=== PATIENT | female | born 1985 | race Caucasian/White ===

== ENCOUNTER 2017-06-06 07:34 | Emergency (ER) | payer BC, OTHER ==
[2017-06-06] MEDS ORDERED: DEXAMETHASONE 10 MG/ML VIAL ONE (08:01)
[2017-06-06] MEDS ORDERED: METOCLOPRAMIDE 10 MG/2mL INJ ONE (08:01)
[2017-06-06] MEDS ORDERED: DIPHENHYDRAMINE 50 MG/ML VIAL ONE (08:01)
--- NOTE | 2017-06-06 08:30 | RAD REPORT ---
EXAM DESCRIPTION: CT - Head Brain Wo Cont - 06/06/2017 8:17 am CLINICAL HISTORY: Headache for 4 days COMPARISON: None. TECHNIQUE: Computed axial tomography of the head was obtained. IV contrast was not requested. All CT scans are performed using dose optimization technique as appropriate and may include automated exposure control or mA/KV adjustment according to patient size. FINDINGS: An intracranial bleed is not seen . The ventricles are normal in caliber. No extra-axial fluid collection is noted. Fluid within the sinuses/ mastoids is not seen. IMPRESSION: No acute intracranial abnormality is seen. If patient's symptoms persist MRI of the bra in would be recommended.
[2017-06-06] MEDS ORDERED: KETOROLAC 30 MG/ML INJ ONE (09:50)
--- NOTE | 2017-06-06 10:41 | ER ---
Nurse's Notes [facility] Name: Tessa Fuller Age: 32 yrs Sex: Female : 1985 Arrival Date: 06/06/2017 Time: 07:39 Bed 14 Private MD: Lane Benson Diagnosis: Migraine Presentation: 06/06 07:47 Presenting complaint: Patient states: headache x 4 days, intermittent vomiting x 2 ss days. Pt reports she was seen at Dr. Benson's office yesterday and given "a shot that starts with a T", that helped until three this morning and patient began vomiting again. Transition of care: patient was not received from another setting of care. Onset of symptoms was June 05, 2017. Initial Sepsis Screen: Does the patient meet any 2 criteria? No. Patient's initial sepsis screen is negative. Does the patient have a suspected source of infection? No. Patient's initial sepsis screen is negative. Care prior to arrival: None. 07:47 Method Of Arrival: Ambulatory ss 07:47 Acuity: ERMIAS 3 ss SUBWAY GUARD: 07:50 LMP 05/25/2017 ss Historical: - Allergies: 07:50 No Known Allergies; ss - Home Meds: 07:50 lamictal [Active]; Prozac Oral [Active]; ss - PMHx: 07:50 borderline personality disorder; Anxiety; ss - PSHx: 07:50 None; ss - Immunization history:: Adult Immunizations up to date. - Social history:: Smoking status: Patient/guardian denies using tobacco. Screenin:25 Abuse screen: Denies threats or abuse. Denies injuries from another. Nutritional jl7 screening: No deficits noted. Tuberculosis screening: No symptoms or risk factors identified. Fall Risk IV access (20 points). Total Holland Fall Scale indicates No Risk (0-24 pts). Assessment: 07:55 General: Appears in no apparent distress. uncomfortable, Behavior is calm, cooperative. jl7 Pain: Complains of pain in headache Pain does not radiate. Pain currently is 7 out of 10 on a pain scale. Quality of pain is described as "Like a bowling ball rolling around in there.". 07:55 Neuro: Level of Consciousness is awake, alert, obeys commands, Oriented to person, jl7 place, time, situation, Moves all extremities. Gait is steady, Speech is normal, Facial symmetry appears normal, Pupils are PERRLA. Cardiovascular: Heart tones S1 S2 present Patient's skin is warm and dry. Respiratory: Airway is patent Respiratory effort is even, unlabored, Respiratory pattern is regular, symmetrical, Breath sounds are clear bilaterally. GI: Reports nausea, vomiting. : No signs and/or symptoms were reported regarding the genitourinary system. EENT: No signs and/or symptoms were reported regarding the EENT system. Derm: Skin is pink, warm \\T\\ dry. Musculoskeletal: No signs and/or symptoms reported regarding the musculoskeletal system. 09:00 Reassessment: No changes from previously documented assessment. Patient and/or family jl7 updated on plan of care and expected duration. Pain level reassessed. Patient is alert, oriented x 3, equal unlabored respirations, skin warm/dry/pink. 10:00 Reassessment: Patient and/or family updated on plan of care and expected duration. Pain jl7 level reassessed. Patient is alert, oriented x 3, equal unlabored respirations, skin warm/dry/pink. pt reports decreased pain at this time. Vital Signs: 07:50 BP 122 / 88; Pulse 82; Resp 16; Temp 98.3(TE); Pulse Ox 98.3% on R/A; Weight 97.52 kg; ss Height 5 ft. 10 in. (177.80 cm); Pain 7/10; 08:25 BP 125 / 90; Pulse 80; Resp 14; Pulse Ox 97% ; jl7 09:46 BP 122 / 83; Pulse 73; Resp 16 S; Pulse Ox 100% on R/A; jl7 10:30 BP 124 / 82; Pulse 75; Resp 16 S; Pulse Ox 100% on R/A; jl7 07:50 Body Mass Index 30.85 (97.52 kg, 177.80 cm) ED Course: 07:39 Patient arrived in ED. mr 07:39 Lane Benson MD is Private Physician. mr 07:42 Michelet Sofia PA is PHCP. jr8 07:42 Osmin Mercado MD is Attending Physician. jr8 07:43 Stacey Stearns RN is Primary Nurse. jl7 07:48 Triage completed. ss 07:50 Arm band placed on right wrist. ss 08:05 Inserted saline lock: 20 gauge in right antecubital area, using aseptic technique. jl7 08:16 CT Head Brain wo Cont In Process Unspecified. EDNM 08:16 CT completed. Patient tolerated procedure well. Patient moved to CT via wheelchair. Patient moved back from CT. 08:25 Patient has correct armband on for positive identification. Bed in low position. Call jl7 light in reach. Side rails up X 1. Pulse ox on. NIBP on. 10:41 Lane Benson MD is Referral Physician. jr8 10:41 Twin Kelly MD is Referral Physician. jr8 11:05 No provider procedures requiring assistance completed. IV discontinued, intact, jl7 bleeding controlled, No redness/swelling at site. Pressure dressing applied. Administered Medications: 08:02 Drug: Benadryl 25 mg Route: IVP; Site: right antecubital; jl7 08:26 Follow up: Response: No change in condition jl7 08:05 Drug: Decadron - Dexamethasone 10 mg Route: IVP; Site: right antecubital; jl7 08:26 Follow up: Response: No change in condition jl7 08:08 Drug: Reglan 10 mg Route: IVP; Site: right antecubital; jl7 08:27 Follow up: Response: No change in condition jl7 09:53 Drug: TORadol 30 mg Route: IVP; Site: right antecubital; jl7 10:15 Follow up: Response: Pain is decreased jl7 Outcome: 10:41 Discharge ordered by MD. jr8 11:05 Discharged to home ambulatory. jl7 11:05 Condition: stable 11:05 Discharge instructions given to patient, Instructed on discharge instructions, follow up and referral plans. medication usage, Demonstrated understanding of instructions, follow-up care, medications, Prescriptions given X 1. 11:08 Patient left the ED. jl7 Signatures: Dispatcher [employer] EDNM Laureen Gee mr FrederickGinger Shelby, RN RN Michelet Dotson PA PA jrStacey Tate RN RN jl7 Corrections: (The following items were deleted from the chart) 08:24 08:21 General: Appears in no apparent distress. uncomfortable, Behavior is calm, jl7 cooperative, jl7 08:24 08:21 Pain: Complains of pain in headache Pain does not radiate. Pain currently is 7 jl7 out of 10 on a pain scale. Quality of pain is described as "Like a bowling ball rolling around in there." jl7 : 10:30 No provider procedures requiring assistance completed. jl7 jl7 : 10:30 IV discontinued, intact, bleeding controlled, No redness/swelling at site. jl7 Pressure dressing applied, jl7
--- NOTE | 2017-06-06 10:41 | EDPHYS ---
Physician Documentation [facility] Name: Tessa Fuller Age: 32 yrs Sex: Female : 1985 Arrival Date: 06/06/2017 Time: 07:39 Bed 14 Private MD: Lane Benson ED Physician Osmin Mercado HPI: 06/06 08:08 This 32 yrs old Female presents to ER via Ambulatory with complaints of jr8 Headache. 08:08 The patient complains of pain to the left occipital area and right occipital area. The jr8 patient describes the headache as throbbing. Onset: The symptoms/episode began/occurred acutely, 2 day(s) ago. Associated signs and symptoms: Pertinent positives: nausea, Photophobia vomiting. Severity of symptoms: At its worst the pain was moderate, in the emergency department the pain is unchanged. Headache History: Denies prior headaches. The symptoms are alleviated by nothing. the symptoms are aggravated by lights, movement, noise. The patient has not experienced similar symptoms in the past. The patient has been recently seen by a physician:. Saw PCP yesterday and was given a shot in clinic. Stated that it had helped for a while but came back worse after medication wore off. Now having nausea and vomiting . [place]ANGE [place]OWER: 07:50 LMP 05/25/2017 ss Historical: - Allergies: 07:50 No Known Allergies; ss - Home Meds: 07:50 lamictal [Active]; Prozac Oral [Active]; ss - PMHx: 07:50 borderline personality disorder; Anxiety; ss - PSHx: 07:50 None; ss - Immunization history:: Adult Immunizations up to date. - Social history:: Smoking status: Patient/guardian denies using tobacco. ROS: 08:08 Eyes: Negative for injury, pain, redness, and discharge, ENT: Negative for injury, jr8 pain, and discharge, Neck: Negative for injury, pain, and swelling, Cardiovascular: Negative for chest pain, palpitations, and edema, Respiratory: Negative for shortness of breath, cough, wheezing, and pleuritic chest pain, Abdomen/GI: Negative for abdominal pain, nausea, vomiting, diarrhea, and constipation, Back: Negative for injury and pain, MS/Extremity: Negative for injury and deformity, Skin: Negative for injury, rash, and discoloration. 08:08 Neuro: Positive for headache, Negative for altered mental status, dizziness, gait disturbance, hearing loss, loss of consciousness, numbness, seizure activity, speech changes, syncope, near syncope, tingling, tinnitus, tremor, visual changes, weakness. Exam: 08:08 Eyes: Pupils equal round and reactive to light, extra-ocular motions intact. Lids and jr8 lashes normal. Conjunctiva and sclera are non-icteric and not injected. Cornea within normal limits. Periorbital areas with no swelling, redness, or edema. ENT: Nares patent. No nasal discharge, no septal abnormalities noted. Tympanic membranes are normal and external auditory canals are clear. Oropharynx with no redness, swelling, or masses, exudates, or evidence of obstruction, uvula midline. Mucous membranes moist. Neck: Trachea midline, no thyromegaly or masses palpated, and no cervical lymphadenopathy. Supple, full range of motion without nuchal rigidity, or vertebral point tenderness. No Meningismus. Cardiovascular: Regular rate and rhythm with a normal S1 and S2. No gallops, murmurs, or rubs. Normal PMI, no JVD. No pulse deficits. Respiratory: Lungs have equal breath sounds bilaterally, clear to auscultation and percussion. No rales, rhonchi or wheezes noted. No increased work of breathing, no retractions or nasal flaring. Abdomen/GI: Soft, non-tender, with normal bowel sounds. No distension or tympany. No guarding or rebound. No evidence of tenderness throughout. Back: No spinal tenderness. No costovertebral tenderness. Full range of motion. Skin: Warm, dry with normal turgor. Normal color with no rashes, no lesions, and no evidence of cellulitis. MS/ Extremity: Pulses equal, no cyanosis. Neurovascular intact. Full, normal range of motion. Neuro: Awake and alert, GCS 15, oriented to person, place, time, and situation. Cranial nerves II-XII grossly intact. Motor strength 5/5 in all extremities. Sensory grossly intact. Cerebellar exam normal. Normal gait. Vital Signs: 07:50 BP 122 / 88; Pulse 82; Resp 16; Temp 98.3(TE); Pulse Ox 98.3% on R/A; Weight 97.52 kg; ss Height 5 ft. 10 in. (177.80 cm); Pain 7/10; 08:25 BP 125 / 90; Pulse 80; Resp 14; Pulse Ox 97% ; jl7 09:46 BP 122 / 83; Pulse 73; Resp 16 S; Pulse Ox 100% on R/A; jl7 10:30 BP 124 / 82; Pulse 75; Resp 16 S; Pulse Ox 100% on R/A; jl7 07:50 Body Mass Index 30.85 (97.52 kg, 177.80 cm) ss MDM: 07:43 Patient medically screened. jr8 10:40 Data reviewed: vital signs, nurses notes, radiologic studies, CT scan. Data jr8 interpreted: Pulse oximetry: on room air is 100 %. Interpretation: normal. Counseling: I had a detailed discussion with the patient and/or guardian regarding: the historical points, exam findings, and any diagnostic results supporting the discharge/admit diagnosis, radiology results, the need for outpatient follow up, a family practitioner, a neurologist, to return to the emergency department if symptoms worsen or persist or if there are any questions or concerns that arise at home. Response to treatment: the patient's symptoms have markedly improved after treatment. 06/06 09:07 Order name: Urine Dipstick--Ancillary (enter results) [facility] 06/06 09:07 Order name: Urine --Ancillary (enter results) [facility] 06/06 07:53 Order name: CT Head Brain wo Cont; Complete Time: 08:43 [facility] 06/06 07:53 Order name: IV; Complete Time: 08:14 [facility] 06/06 07:53 Order name: Urine Test (obtain specimen); Complete Time: 08:13 [facility] 06/06 07:53 Order name: Urine Dipstick-Ancillary (obtain specimen); Complete Time: 08:13 [facility] Administered Medications: 08:02 Drug: Benadryl 25 mg Route: IVP; Site: right antecubital; jl7 08:26 Follow up: Response: No change in condition jl7 08:05 Drug: Decadron - Dexamethasone 10 mg Route: IVP; Site: right antecubital; jl7 08:26 Follow up: Response: No change in condition jl7 08:08 Drug: Reglan 10 mg Route: IVP; Site: right antecubital; jl7 08:27 Follow up: Response: No change in condition jl7 09:53 Drug: TORadol 30 mg Route: IVP; Site: right antecubital; jl7 10:15 Follow up: Response: Pain is decreased jl7 Disposition: 19:05 Co-signature as Attending Physician, Osmin Mercado MD I agree with the assessment and stephanie plan of care. Disposition: 06/06/17 10:41 Discharged to Home. Impression: Migraine. - Condition is Stable. - Discharge Instructions: Migraine Headache. - Prescriptions for Fiorinal 50- 325-40 mg Oral Capsule - take 2 capsule by ORAL route every 4 hours As needed - not to exceed 6 capsules per day; 20 capsule. - Medication Reconciliation Form, Thank You Letter, Antibiotic Education, Prescription Opioid Use form. - Follow up: Lane Benson MD; When: 2 - 3 days; Reason: Recheck today's complaints, Continuance of care, Re-evaluation by your physician. Follow up: Twin Kelly MD; When: 1 week; Reason: If symptoms return, Recheck today's complaints, Continuance of care, Re-evaluation by your physician. - Problem is new. - Symptoms have improved. Signatures: Dispatcher [employer] EDMD Osmin Mercado MD MD cha Smirch, Shelby RN RN Michelet Dotson PA PA jr8 Stacey Stearns RN RN jl7
[2017-06-06 11:45] LABS: Urine Blood TRACE (NEG); Urine Glucose NEGATIVE (NEG); Urine Protein 1+ (NEG); Urine Specific Gravity 1.025 (1.005-1.030); Urine pH 5.5 (5.0-7.0)
== END 2017-06-06 11:08 | disposition home or self-care (01) ==
LOC: ER 07:34
DX: G43.909 Migraine, unspecified, not intractable, without status migrainosus (principal); F60.3 Borderline personality disorder; F41.9 Anxiety disorder, unspecified
CPT/HCPCS: 70450; 81003; 81025; 96374; 96375; 99284; J1100; J2765